=== PATIENT | male | born 1980 | race African-American/Black ===

== ENCOUNTER 2018-07-18 19:17 | Emergency (ER) | payer MEDICAID ==
[~2018-07-18] VITALS: Ht 177.8 cm; Wt 72.6 kg
[2018-07-18 19:17] VITALS: BP 124/74
--- NOTE | 2018-07-18 19:33 | NUR ---
Pt ambulated to bed 8.
[2018-07-18] MEDS ORDERED: NACL 0.9% 1,000 ML IV ONE (19:40)
[2018-07-18] MEDS ORDERED: ASPIRIN 81 MG TAB.CHEW PO ONE (19:40)
--- NOTE | 2018-07-18 19:40 | NUR ---
38 yo male biba for c/o chest palpitations. pt awake laying in gurney. pt states he has history of mental disorder, and does not take medicaiton as prescribed. pt states he was sitting @ [employer] drinking coffee and had sudden "fluttering in chest." pt denies chest pain sob @ this time. s1 s2 heard. lung sounds clear to auscultation, even unlabored. VSS @ this time. no acute distress. will update er md. will continue to observe.
--- NOTE | 2018-07-18 19:53 | NUR ---
optical laboratory technician at bedside.
--- NOTE | 2018-07-18 20:01 | NUR ---
Dr. Hernadez evaluating patient at bedside.
--- NOTE | 2018-07-18 20:15 | NUR ---
18 g piv to left foream, labs drawn, no acute distress noted. will continue to observe.
--- NOTE | 2018-07-18 20:25 | NUR ---
pt sitting up in gurney, denies chest pain @ this time. pt states flutter in chest noted; denies cp/sob vss. no acute distress. will continue to observe.
[2018-07-18 20:55] LABS: BASOPHILS # (AUTO) 0.1 K/uL (0.00-0.22); BASOPHILS % (AUTO) 2.7 % (0.0-2.0); EOSINOPHILS # (AUTO) 0.1 K/uL (0-0.4); EOSINOPHILS % (AUTO) 1.4 % (0.0-4.0); HEMATOCRIT 45.6 % (36-52); HEMOGLOBIN 15.1 g/dL (12.0-18.0); LYMPHOCYTES # (AUTO) 1.6 K/uL (2.0-11.5); LYMPHOCYTES % (AUTO) 29.6 % (20.5-51.1); MEAN CORPUSCULAR HEMOGLOBIN 33 pg (27-31); MEAN CORPUSCULAR HGB CONC 33 g/dL (33-37); MONOCYTES # (AUTO) 0.5 K/uL (0.8-1.0); MONOCYTES % (AUTO) 10.1 % (1.7-9.3); NEUTROPHILS % (AUTO) 56.2 % (42.2-75.2); PLATELET COUNT (AUTO) 279 K/uL (140-450); RED CELL DISTRIBUTION WIDTH 13.1 % (11.6-13.7); WHITE BLOOD COUNT (AUTO) 5.4 K/uL (4.8-10.8)
[2018-07-18 21:23] LABS: ALBUMIN 3.8 g/dL (3.4-5.0); ANION GAP 14.4 (8-16); CARBON DIOXIDE 25.4 mmol/L (21-32); CREATININE 1.1 mg/dL (0.7-1.3); POTASSIUM 3.8 mmol/L (3.5-5.1); TOTAL BILIRUBIN 0.2 mg/dL (0.0-1.0)
[2018-07-18 22:45] VITALS: BP 109/54
== END 2018-07-18 22:34 | disposition home or self-care (01) ==
LOC: MED 19:17
DX: R00.2 Palpitations (principal); J45.909 Unspecified asthma, uncomplicated; F17.200 Nicotine dependence, unspecified, uncomplicated
CPT/HCPCS: 36415; 71045; 80053; 81002; 84484; 85025; 85610; 85730; 93005; 99284; J7030

== ENCOUNTER 2021-07-14 21:00 | Emergency (ER) | payer MEDICAID ==
[~2021-07-14] VITALS: Ht 177.8 cm; Wt 93.0 kg
[2021-07-14 22:02] VITALS: BP 147/90
[2021-07-14] MEDS ORDERED: QUEtiapine FUMARATE 25 MG TAB PO STA (22:59)
[2021-07-14 23:27] LABS: BASOPHILS % (AUTO) 0.5 % (0.0-2.0); EOSINOPHILS # (AUTO) 0.1 K/uL (0-0.4); EOSINOPHILS % (AUTO) 0.6 % (0.0-4.0); HEMATOCRIT 44.7 % (36-52); HEMOGLOBIN 15.6 g/dL (12.0-18.0); LYMPHOCYTES # (AUTO) 1.6 K/uL (2.0-11.5); MEAN CORPUSCULAR HEMOGLOBIN 34 pg (27-31); MEAN CORPUSCULAR HGB CONC 35 g/dL (33-37); MEAN CORPUSCULAR VOLUME 97.6 fL (80-94); MONOCYTES # (AUTO) 0.3 K/uL (0.8-1.0); MONOCYTES % (AUTO) 3.4 % (1.7-9.3); NEUTROPHILS # (AUTO) 8.2 K/uL (1.8-7.7); NEUTROPHILS % (AUTO) 79.5 % (42.2-75.2); PLATELET COUNT (AUTO) 364 K/uL (140-450); RED BLOOD CELL COUNT(AUTO) 4.59 MIL/uL (4.20-6.10); RED CELL DISTRIBUTION WIDTH 14.7 % (11.6-13.7); WHITE BLOOD COUNT (AUTO) 10.3 K/uL (4.8-10.8)
--- NOTE | 2021-07-14 23:53 | NUR ---
PD CALLED FOR 5150 HOLD
[2021-07-14 23:55] LABS: ACETAMINOPHEN < 0.5 ug/ml (10-30); ALBUMIN 4.5 g/dL (3.4-5.0); ASPARTATE AMINOTRANSFERASE 50 U/L (15-37); CARBON DIOXIDE 26.4 mmol/L (21-32); CHLORIDE 99 mmol/L (98-107); CREATININE 0.9 mg/dL (0.6-1.3); GFR ARICAN-AMERICAN 119 mL/min (>90); GLUCOSE 73 mg/dL (74-106); POTASSIUM 3.4 mmol/L (3.5-5.1); SALICYLATE 4.6 mg/dL (2.8-20.0); SODIUM SERUM 137 mmol/L (136-145); THYROID STIMULATING HORMONE 2.06 uIU/mL (0.34-3.74); TOTAL BILIRUBIN 0.8 mg/dL (0.0-1.0); UREA NITROGEN, BLOOD 20 mg/dL (7-18)
--- NOTE | 2021-07-15 | NUR ---
HOSPITAL SECURITY CALLED FOR COLLECTION OF PT'S BELONGINGS
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
--- NOTE | 2021-07-15 07:30 | NUR ---
received [place] asleep but easily arousable. remains on 5150 hold. pending ua
[2021-07-15 12:33] LABS: APPEARANCE,URINE CLEAR (CLEAR); BILIRUBIN,URINE 2+ (NEGATIVE); BLOOD, URINE NEGATIVE (NEGATIVE); COLOR,URINE YELLOW (YELLOW); LEUKOCYTE ESTERASE ,URINE NEGATIVE (NEGATIVE); NITRITE, URINE NEGATIVE (NEGATIVE); UGLUCOSE NEGATIVE (NEGATIVE)
[2021-07-15 12:52] LABS: BARBITURATE, URINE NEGATIVE ng/ml (NEG <=200)
[2021-07-15 12:53] LABS: BENZODIAZEPINE, URINE NEGATIVE ng/mL (NEG <=200); CANNABINOID, URINE NEGATIVE ng/mL (NEG <=50); COCAINE, URINE POSITIVE ng/mL (NEG <=300); OPIATE, URINE NEGATIVE ng/mL (NEG <=2000); PHENCYCLIDINE SCREEN,URINE NEGATIVE ng/mL (NEG <=25)
--- NOTE | 2021-07-15 13:32 | NUR ---
per dr Craft pt is medically cleared
--- NOTE | 2021-07-15 14:59 | NUR ---
Received patient information. Called to ER/Ayla aware hold needs to be adjusted as date is off. She will advise. Faxed intake to [facility]. He is aware PCR is pending and the issue of the hold. He will review and folow up for possible placement.
--- NOTE | 2021-07-15 15:00 | NUR ---
pt asleep in gurney no s/s pain or discomfort. remains on 5150 hold. safety maintained
--- NOTE | 2021-07-15 15:12 | NUR ---
Intake has also been faxed to the following facilities for review for placement. [facility]/ [facility]/ [facility]/ [facility] Will keep ER informed of any updates. Facility is aware of pending PCR/Hold update.
--- NOTE | 2021-07-15 17:59 | NUR ---
pt eating dinner, remains calm and cooperative. pending placement. NAD. safety maintained
--- NOTE | 2021-07-15 19:15 | NUR ---
RECIEVED SHIFT REPORT FROM DAY SHIFT RN TO ASSUME CARE OF PT.
--- NOTE | 2021-07-15 19:20 | NUR ---
RN TO PT ROOM. PT LYING IN BED WITH EYES CLOSED, APPEARS TO BE ASLEEP. EQUAL RISE AND FALL OF CHEST. NO ACUTE DISTRESS AT THIS TIME. PT LOCATED CLOSE TO NURSES STATION FOR CONTINUOUS OBSERVATION, CURTAIN OPENED, SAFETY CHECKS PERFORMED. WILL CONTINUE TO MONITOR.
--- NOTE | 2021-07-15 21:30 | NUR ---
RN TO PT ROOM. PT LYING IN BED WITH EYES CLOSED, APPEARS TO BE ASLEEP. EQUAL RISE AND FALL OF CHEST. NO ACUTE DISTRESS AT THIS TIME. PT LOCATED CLOSE TO NURSES STATION FOR CONTINUOUS OBSERVATION. WILL CONTINUE TO MONITOR.
--- NOTE | 2021-07-15 22:17 | NUR ---
RN PROVIDED PT WITH FOOD.
--- NOTE | 2021-07-15 23:38 | NUR ---
Late note....Received updated hold. Intake has been faxed to [facility]/ [facility]/ [facility]/ [facility]/ [facility].....Will keep ER updated with any information.
--- NOTE | 2021-07-16 00:30 | NUR ---
PT LYING IN BED APPEARS TO BE ASLEEP. NO ACUTE DISTRESS AT THIS TIME. WILL CONTINUE TO MONITOR PT.
--- NOTE | 2021-07-16 02:45 | NUR ---
PT LYING IN BED WITH EYES CLOSED. APPEARS TO BE ASLEEP. EQUAL RISE AND FALL OF CHEST. PT IS PLACED IN A ROOM CLOSE TO THE NURSES STATION WITH CONSTANT MONITORING BY STAFF. PT DENIES SI, REPORTS THAT HE IS HEARING VOICES. SAFETY CHECKS PERFORMED. NO ACUTE DISTRESS AT THIS TIME. PT DENIES ANY NEEDS AT THIS TIME. RN OFFERED PT OPPORTUNITY TO USE THE RESTROOM, PT DECLINED. WILL CONTINUE TO MONITOR.
--- NOTE | 2021-07-16 03:58 | NUR ---
PT LYING IN BED WITH EYES OPEN. ALERT AND ORIENTED X4. REPORTS HEARING VOICES TELLING HIM TO KILL HIMSELF. PT IN ROOM CLOSE TO NURSES STATION FOR CLOSE OBSERVATION, SAFETY CHECKS PERFORMED PER HOSPITAL PROTOCOL. NO ACUTE DISTRESS AT THIS TIME. WILL CONTINUE TO MONITOR PT.
--- NOTE | 2021-07-16 06:27 | NUR ---
PT LYING IN BED WITH EYES CLOSED. APPEARS TO BE SLEEPING. EQUAL RISE AND FALL OF CHEST. NO ACUTE DISTRESS AT THIS TIME.
--- NOTE | 2021-07-16 07:15 | NUR ---
Report and continuation of care received from DIANNA Gavin
--- NOTE | 2021-07-16 07:15 | NUR ---
REPORT GIVEN TO DIANNA ANTUNEZ.
--- NOTE | 2021-07-16 07:37 | NUR ---
Patient sitting upright in bed. 4 saltine crackers and juice provided per request. All needs met.
--- NOTE | 2021-07-16 08:20 | NUR ---
PT OFFERED BREAKFAST TRAY, PT STATED HE DOESNT WANT IT. PT REQUESTING CIGARETTE. DR RAMIREZ MADE AWARE, RN REQUESTING NICOTINE PATCH
[2021-07-16] MEDS ORDERED: ONDANSETRON 4 MG ODT PO ONE (08:25)
[2021-07-16] MEDS ORDERED: LORazepam 1 MG TAB PO ONE (08:45)
[2021-07-16] MEDS ORDERED: NICOTINE TRANSD SYS 14 MG/24 HR PATCH TD SCH (09:00)
--- NOTE | 2021-07-16 09:08 | NUR ---
PULLED QUANTITY: 1 OF 2 OF ATIVAN 1MG TAB FROM [facility]. PULLED MED SECOND TIME FOR REMAINING QUANTITY: 1 TAB. DISCREPENCY REPORT PRINTED. CHARGE NURSE MADE AWARE.
--- NOTE | 2021-07-16 09:15 | NUR ---
Pt refusing Nicotine patch at this time. States "It doesn't work for me."
--- NOTE | 2021-07-16 09:49 | NUR ---
Patient resting in semi-fowlers position. Breakfast tray remains at bedside. All pt needs met.
--- NOTE | 2021-07-16 11:21 | NUR ---
Patient sitting upright in bed with both eyes open. Denies pain, nausea. All pt needs met
--- NOTE | 2021-07-16 12:25 | NUR ---
Spoke with Michelle from [facility], provided status update and information per request and states will forward to curriculum supervisor and recontact us with placement decision.
--- NOTE | 2021-07-16 12:31 | NUR ---
RECEIVED CALL FROM VIKI AT [facility] [place], PT HAS BEEN ACCEPTED UNDER DR WALKER AND WILL GO TO UNIT 2. NUMBER TO CALL REPORT IS [phone]
--- NOTE | 2021-07-16 13:28 | NUR ---
[facility] AT BEDSIDE
[2021-07-16 13:35] VITALS: BP 148/99
--- NOTE | 2021-07-16 13:38 | NUR ---
tPatient to be transferred to [facility] [address] . Is being transferred due to medical clerance / higher level of care. Receiving facility has accepting physician and available space. ER physician has signed transfer form. Patient or responsible republican has agreed to transfer and signed form. Patient belongings inventoried and will be sent with patient. Copy of nursing notes, lab reports, EKG, Physicians Orders and X-rays to be sent with patient. Report called to Michelle at receiving facility. [facility] ambulance service has been called for transfer. ETA is [id number]
== END 2021-07-16 13:35 | disposition psychiatric hospital, planned readmission (93) ==
LOC: MED 21:00
DX: F29 Unspecified psychosis not due to a substance or known physiological condition (principal); Z20.822 Contact with and (suspected) exposure to COVID-19; R45.851 Suicidal ideations; F20.9 Schizophrenia, unspecified; J45.909 Unspecified asthma, uncomplicated
CPT/HCPCS: 80053; 80305; 84439; 84443; 85025; 87426; 99285; G0480; G0482; U0003